=== PATIENT | female | born 1970 | race Caucasian/White ===

== ENCOUNTER 2022-10-02 07:50 | Day surgery (SDC) | payer BC ==
[2022-10-02] MEDS ORDERED: LIDOCAINE HCL 2% 100 MG/5 ML IJ ONE (07:51)
[2022-10-02 08:02] LABS: HCG URINE TEST NEGATIVE (NEGATIVE)
[2022-10-02] MEDS ORDERED: DIPRIVAN 200 MG/20 ML IV ONE (08:39)
[2022-10-02] MEDS ORDERED: Lactated Ringers 1,000 ML IV ONE (11:43)
--- NOTE | 2022-10-02 18:06 | XRAY ---
Indication: Bilateral L4-S1 MBB. Intraoperative fluoroscopy provided for 10 seconds. Single digital spot image submitted for interpretation demonstrates posterior needle tips projecting over the expected left and right L4-S1 nerve roots. Correlate with intraoperative findings/report.
--- NOTE | 2022-10-02 19:04 | XRAY ---
10 seconds of fluoroscopy was used in surgery for a bilateral L4-S1 MBB.
== END 2022-10-02 09:10 | disposition home or self-care (01) ==
LOC: SDC-PAIN 07:50
PROVIDERS: ATTEND Psychiatry & Neurology Pain Medicine
DX: M47.816 Spondylosis without myelopathy or radiculopathy, lumbar region (principal); E11.9 Type 2 diabetes mellitus without complications; Z79.899 Other long term (current) drug therapy
CPT/HCPCS: 36415; 64493; 64494; 72020; 77002; 81025; 82947; J2704

== ENCOUNTER 2022-11-27 07:01 | Day surgery (SDC) | payer BC ==
[2022-11-27] MEDS ORDERED: BUPIVACAINE 0.5% VIAL IJ ONE (07:02)
[2022-11-27 07:19] LABS: HCG URINE TEST NEGATIVE (NEGATIVE)
[2022-11-27] MEDS ORDERED: DIPRIVAN 200 MG/20 ML IV ONE (08:22)
--- NOTE | 2022-11-27 10:39 | XRAY ---
Indication: Bilateral L4-S1 MBB Intraoperative fluoroscopy provided for 19 seconds. 2 digital spot images submitted for interpretation demonstrates posterior needle tips projecting over the expected left and right L4-S1 nerve roots. Correlate with intraoperative findings/report.
--- NOTE | 2022-11-27 11:05 | XRAY ---
19 seconds of fluoroscopy was used in surgery for a bilateral L4-S1 MBB.
[2022-11-27] MEDS ORDERED: Lactated Ringers 1,000 ML IV ONE (13:32)
== END 2022-11-27 08:50 | disposition home or self-care (01) ==
LOC: SDC-PAIN 07:01
PROVIDERS: ATTEND Psychiatry & Neurology Pain Medicine
DX: M47.816 Spondylosis without myelopathy or radiculopathy, lumbar region (principal); E11.9 Type 2 diabetes mellitus without complications; Z79.899 Other long term (current) drug therapy
CPT/HCPCS: 64493; 64494; 72020; 77002; 81025; 82947; J2704

== ENCOUNTER 2023-01-08 06:52 | Day surgery (SDC) | payer BC ==
[2023-01-08] MEDS ORDERED: Depo-Medrol 40 MG/ML IM ONE (06:53)
[2023-01-08] MEDS ORDERED: BUPIVACAINE 0.5% VIAL IJ ONE (06:53)
[2023-01-08] MEDS ORDERED: LIDOCAINE HCL 1% 50 MG/5 ML VL PF IJ ONE (06:53)
[2023-01-08 07:19] LABS: HCG URINE TEST NEGATIVE (NEGATIVE)
[2023-01-08] MEDS ORDERED: DIPRIVAN 200 MG/20 ML IV ONE ×2 (08:34→08:50)
--- NOTE | 2023-01-08 10:17 | XRAY ---
Indication: Right L4-S1 RFA. Intraoperative fluoroscopy provided for 27 seconds. 4 digital spot images submitted for interpretation demonstrates posterior needle tips projecting over the expected right L4-S1 nerve roots. Correlate with intraoperative findings/report.
[2023-01-08] MEDS ORDERED: Lactated Ringers 1,000 ML IV ONE (13:07)
--- NOTE | 2023-01-08 13:30 | XRAY ---
27 seconds of fluoroscopy was used in surgery for a right L4-S1 RFA.
== END 2023-01-08 09:08 | disposition home or self-care (01) ==
LOC: SDC-PAIN 06:52
PROVIDERS: ATTEND Psychiatry & Neurology Pain Medicine
DX: M47.816 Spondylosis without myelopathy or radiculopathy, lumbar region (principal); Z79.899 Other long term (current) drug therapy
CPT/HCPCS: 64635; 64636; 72100; 77002; 81025; 82947; J1030; J2001; J2704

== ENCOUNTER 2023-01-15 07:12 | Day surgery (SDC) | payer BC ==
[2023-01-15] MEDS ORDERED: BUPIVACAINE 0.5% VIAL IJ ONE (07:13)
[2023-01-15] MEDS ORDERED: Depo-Medrol 40 MG/ML IM ONE (07:13)
[2023-01-15] MEDS ORDERED: LIDOCAINE HCL 1% 50 MG/5 ML VL PF IJ ONE (07:13)
[2023-01-15 07:27] LABS: HCG URINE TEST NEGATIVE (NEGATIVE)
[2023-01-15] MEDS ORDERED: DIPRIVAN 200 MG/20 ML IV ONE (08:45)
--- NOTE | 2023-01-15 10:55 | XRAY ---
Indication: Left L4-S1 RFA. Intraoperative fluoroscopy provided for 27 seconds. 4 digital spot images submitted for interpretation demonstrates posterior needle tips projecting over the expected left L4-S1 nerve roots. Correlate with intraoperative findings/report.
[2023-01-15] MEDS ORDERED: Lactated Ringers 1,000 ML IV ONE (11:05)
--- NOTE | 2023-01-15 13:36 | XRAY ---
27 seconds of fluoroscopy was used in surgery for a left L4-S1 RFA.
== END 2023-01-15 09:17 | disposition home or self-care (01) ==
LOC: SDC-PAIN 07:12
PROVIDERS: ATTEND Psychiatry & Neurology Pain Medicine
DX: M47.816 Spondylosis without myelopathy or radiculopathy, lumbar region (principal); E11.9 Type 2 diabetes mellitus without complications; Z79.899 Other long term (current) drug therapy
CPT/HCPCS: 64635; 64636; 72100; 77002; 81025; 82947; J1030; J2001; J2704

== ENCOUNTER 2025-03-30 07:36 | Day surgery (SDC) | payer OTHER ==
[2025-03-30] MEDS ORDERED: LIDOCAINE HCL 2% 100 MG/5 ML IJ ONE (07:37)
[2025-03-30] MEDS ORDERED: methylPREDNISolone acetate IM ONE (07:37)
[2025-03-30] MEDS ORDERED: propofoL IV ONE (09:00)
[2025-03-30] MEDS ORDERED: Lactated Ringers 1,000 ML IV ONE (09:14)
--- NOTE | 2025-03-30 12:24 | XRAY ---
Indication: Bilateral L4-S1 MBB. Intraoperative fluoroscopy provided for 11 seconds. Single digital spot image submitted for interpretation demonstrates posterior needle tips projecting over expected left and right L4-S1 nerve roots. Correlate with intraoperative findings/report.
--- NOTE | 2025-03-30 12:52 | XRAY ---
11 seconds of fluoroscopy was used in surgery for a bilateral L4-S1 MBB.
== END 2025-03-30 09:32 | disposition home or self-care (01) ==
LOC: SDC-PAIN 07:36
PROVIDERS: ATTEND Psychiatry & Neurology Pain Medicine
DX: M47.817 Spondylosis without myelopathy or radiculopathy, lumbosacral region (principal); E11.9 Type 2 diabetes mellitus without complications